=== PATIENT | male | born 1970 | race Caucasian/White ===

== ENCOUNTER 2016-12-15 07:42 | Emergency (ER) | payer OTHER ==
[2016-12-15] MEDS ORDERED: CYCLOBENZAPRINE10 MG PO (16:25)
[2016-12-15] MEDS ORDERED: NORCO 5-325 TA1 EACH PO (16:25)
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
== END 2016-12-15 18:49 | disposition short-term general hospital (02) ==
LOC: ED 07:42
PROC: 0JQN0ZZ Repair Right Lower Leg Subcutaneous Tissue and Fascia, Open Approach (ICD-10-PCS; principal; 2016-12-15)
PROC: 0HQKXZZ Repair Right Lower Leg Skin, External Approach (ICD-10-PCS; 2016-12-15)
PROC: 2W3RX1Z Immobilization of Left Lower Leg using Splint (ICD-10-PCS; 2016-12-15)
DX: S82.62XA Displaced fracture of lateral malleolus of left fibula, initial encounter for closed fracture (principal); S91.021A Laceration with foreign body, right ankle, initial encounter; S61.412A Laceration without foreign body of left hand, initial encounter; S81.811A Laceration without foreign body, right lower leg, initial encounter; V83.5XXA Driver of special industrial vehicle injured in nontraffic accident, initial encounter
CPT/HCPCS: 12002; 12034; 29515; 36415; 71010; 71260; 72170; 73120; 73130; 73590; 73610; 74177; 80053; 85025; 86850; 86900; 86901; 90471; 90715; 96361; 96374; 96375; 99285; G0480; J0690; J1170; J2405; J3010; J7030; J7120; Q9967